=== PATIENT | female | born 2000 | race American Indian/Alaskan Native ===

== ENCOUNTER 2019-08-20 02:43 | Inpatient (IN) | payer MEDICAID, OTHER ==
[2019-08-20] MEDS ORDERED: Oxytocin/Normal Saline 30 UNIT/500 ML BAG IV SCH (03:45)
[2019-08-20] MEDS ORDERED: Tranexamic Acid 1,000 MG in Sodium Chloride 0.9% 100 ML IV PRN (04:09)
[2019-08-20] MEDS ORDERED: Sodium Chloride 0.9% 10 ML Syringe FLUSH PRN ×2 (04:09→05:25)
[2019-08-20] MEDS ORDERED: Lactated Ringers 500 ML IV ONE (04:09)
[2019-08-20] MEDS ORDERED: Ondansetron 4 MG/2 ML SDV IV PRN (04:09)
[2019-08-20] MEDS ORDERED: Carboprost Tromethamine 250 MCG/1 ML Amp IM PRN (04:09)
[2019-08-20] MEDS ORDERED: Misoprostol 400 MCG (4 X 100 MCG TAB) RECTAL PRN (04:09)
[2019-08-20] MEDS ORDERED: Lidocaine 1% 30 ML SDV INJECT PRN (04:09)
[2019-08-20] MEDS ORDERED: Methylergonovine 0.2 MG/1 ML Amp IM PRN (04:09)
[2019-08-20] MEDS ORDERED: Lactated Ringers 1,000 ML IV SCH (04:15)
[2019-08-20] MEDS ORDERED: Benzocaine/Menthol 20%-0.5% Spray 56 GM Canister TOP PRN (05:25)
[2019-08-20] MEDS ORDERED: Oxytocin 10 Units/1 ML SDV IM PRN (05:25)
[2019-08-20] MEDS ORDERED: Simethicone 80 MG Tab.Chew PO PRN (05:25)
[2019-08-20] MEDS ORDERED: Zolpidem 5 MG Tab PO PRN (05:25)
--- NOTE | 2019-08-20 09:35 | HP ---
PATIENT IDENTIFICATION: Gautam Saldana is a 18-year-old, G3, P2-0-0-2, intrauterine at 38 weeks by 34-week ultrasound, who presents with vaginal leaking. HISTORY OF PRESENT ILLNESS: The patient states on the morning of 08/19/2019, approximately 10 a.m., was getting up to go to the bathroom, noticed vaginal leaking that was described as clear in nature. Did soak through some of her undergarments. She states she continued to leak throughout the day. Occasionally had some contractions but nothing increasing in frequency or intensity, and denies any contractions on initial evaluation here. To put this is context, the patient has late care, impaired glucose tolerance, is GBS negative, and had history of syphilis treated in a 2018 with titers decreasing during this with serial titers being done. Records were called for, reviewed as below, and supplemented by the patient history. OBSTERICAL HISTORY: 1. 08/08/2015, 37-4/7 weeks, delivered term female, 6 pounds 9.6 ounces, spontaneous vaginal delivery. 2. 09/10/2018, 37-3/7 weeks, term female, 7 pounds 7 ounces, spontaneous vaginal delivery. [facility]: ABO blood type O positive, negative antibody. Hemoglobin 9.8, platelets 265, rubella immune. RPR reactive with titer decreased to 1:16 and Rh treated in last . Hepatitis B surface antigen negative. Negative HIV, GC, chlamydia. Hepatitis C negative, and UDS negative during this . GBS was negative on 08/11/2019. ALLERGIES: None. MEDICATIONS: vitamins. Iron once a day 325 mg daily. PAST MEDICAL/PAST SURGICAL HISTORY: Otherwise reviewed and felt to be noncontributory. FAMILY HISTORY: Maternal aunt with diabetes. Negative family history of defects, anesthesia problems, bleeding problems, or thyroid disease. SOCIAL HISTORY: The patient denies any alcohol, tobacco, or drug use. She had a positive THC in 2014 on drug screen. Negative during this . She lives with her boyfriend, father of baby, Anderson Burger , and their daughter in the [place] area. They do not have any pets. REVIEW OF SYSTEMS: Otherwise reviewed and felt to be noncontributory. OBJECTIVE: Vital Signs: Blood pressure is 135/74, heart rate 109, temperature 98.2. Appearance: Female, appears her stated age, acting appropriate for age. Nontoxic in appearance. HEENT: Head is atraumatic. EOMs intact. PERRLA. No scleral icterus. No obvious otorhinorrhea. Mucous membranes are moist. With colored contacts in. Neck: No masses or lesions. Lungs: Clear to auscultation bilaterally. No increased work of breathing. Heart: S1 and S2. Regular rate and rhythm. Abdomen: Gravid. Boogie indeterminate. Nontender and nondistended. Bowel sounds positive. No organomegaly, pulsatile masses, or obvious hernias. No rebound, rigidity, or guarding. Genitourinary: Normal external female genitalia. Normal position and presentation of urethra. With normal amount of clear fluid noted at the vaginal orifice. Vaginal exam thereafter reveals her to be 4 cm, 75% effaced, -1 station, vertex suspected, and a secondary bag was felt. This was subsequently ruptured with [place] yielding clear fluid. Extremities: Trace pedal edema. Deep tendon reflexes 2 to 3 out of 4 bilaterally and symmetric in the lower extremities. Mood and affect congruent. Judgment and insight intact. Skin: No cyanosis, clubbing, or jaundice. Pending is a CBC, UDS. NST was found to be reactive and reassuring with heart tones in the 120s. Tocometer does reveal occasional contractions. Pitocin was started immediately after AmniSure was noted to be positive. Initial evaluation by nurse did reveal minimal leaking of fluid vaginally. Therefore, AmniSure was done, and this was positive. Due to prolonged length of rupture of membranes, Pitocin was called for and started immediately. ASSESSMENT: 1. Intrauterine at 38 weeks by 34-week ultrasound. 2. Rupture of membranes with no contractions felt by the patient or labor upon admission with rupture of membranes at 08/19/2019 at 10 a.m. 3. Suspected secondary bag with artificial rupture of membranes done as above yielding clear fluid. 4. Late care. 5. Impaired glucose tolerance. 6. History of syphilis treated in 2018 and titers decreasing. 7. Group B Streptococcus negative. 8. G3, P2-0-0-2. PLAN: The patient will be admitted. Pitocin has been started. Secondary rupture of membranes done as above. We will continue to follow clinically and closely. The patient understands and agrees with the above treatment plan. [facility] /[id number]
--- NOTE | 2019-08-20 10:15 | OBOUT ---
DATE: 08/20/2019 TIME: 2:50 to 3:10. REASON FOR NST: 1. Intrauterine at 38 weeks by 34-week ultrasound. 2. Rupture of membranes with no contractions at approximately 10 a.m. on 08/19/2019. 3. Late care. 4. Impaired glucose tolerance. 5. History of syphilis, treated. Titers decreasing. This was treated in 2018 . 6. GBS negative. 7. G3, P2-0-0-2. NST INTERPRETATION: During this time period, heart tone baseline is approximately 120, and there are at least two 15 x 15 beat per minute accelerations, make this strip reactive. It is also noted to be reassuring. Tocometer reveals potential of 5 contractions that the patient has not felt much. ASSESSMENT: 1. Nonstress test, reactive, and reassuring. 2. Tocometer with contractions. PLAN: Due to rupture of membranes being a distant time ago, Pitocin was called for immediately to be given after initial evaluation and AmniSure revealed it was positive. Please see H and P for further details as well for further plans as well as orders. [facility] /[id number]
[2019-08-20] MEDS: Prenatal Multivitamin with Calcium/Folic Acid/Iron Tab PO SCH (12:55)
[2019-08-20] MEDS: Ibuprofen 800 MG Tab PO PRN ×2 (12:55→21:56)
[2019-08-20] MEDS: Docusate Sodium 100 MG Cap PO PRN ×2 (12:55→19:41)
[2019-08-20] MEDS: Ferrous Sulfate 325 MG Tab PO SCH (12:55)
[2019-08-20] MEDS: Acetaminophen 325 MG Tab PO PRN (19:41)
[2019-08-21] MEDS: Ibuprofen 800 MG Tab PO PRN ×2 (09:57→20:31)
[2019-08-21] MEDS: Docusate Sodium 100 MG Cap PO PRN ×2 (09:57→20:32)
[2019-08-21] MEDS: Ferrous Sulfate 325 MG Tab PO SCH (09:57)
[2019-08-21] MEDS: Prenatal Multivitamin with Calcium/Folic Acid/Iron Tab PO SCH (09:57)
--- NOTE | 2019-08-21 10:30 | PN ---
DATE: 08/21/2019 day #1, status post spontaneous vaginal delivery. SUBJECTIVE: The patient is tolerating p.o., ambulating, urinating, passing flatus. She states her bleeding has been stable. OBJECTIVE: Vital Signs: Temperature 97.6, heart rate 92, blood pressure 132/60, and respiratory rate 18. Lungs: Clear to auscultation bilaterally. Heart: S1, S2. Regular rate and rhythm. GENITOURINARY: Firm uterus around the umbilicus. No peripheral edema. No calf pain. LABORATORY DATA: White cell count 10.3, hemoglobin dropped down to 8.3 from 9.1, and platelets of 206. ASSESSMENT: 1. day #1, status post spontaneous vaginal delivery. 2. Anemia of acute blood loss. Hemoglobin dropping down to 8.3, currently asymptomatic. Vital signs are stable. We will continue to follow clinically and closely. PLAN: Possible discharge tomorrow. Discussed with the patient most likely we will send her home tomorrow in the afternoon sometime, make sure her and her baby are doing well, and repeat a CBC tomorrow. [facility] /[id number]
--- NOTE | 2019-08-21 10:45 | DEL ---
DATE: 08/20/2019 PREOPERATIVE DIAGNOSES: 1. Intrauterine at 38 weeks by 34-week ultrasound. 2. Rupture of membranes at approximately 10 a.m. on 08/19/2019, with no contractions until evaluation in the hospital. 3. Late care. 4. Impaired glucose tolerance. 5. History of syphilis treated in 2018 with titers decreasing. 6. Group B Streptococcus negative. 7. Maternal anemia with hemoglobin 9.1. 8. G3, P2-0-0-2. POSTOPERATIVE DIAGNOSES: 1. Intrauterine at 38 weeks by 34-week ultrasound-delivered. 2. Rupture of membranes at approximately 10 a.m. on 08/19/2019 with no contractions until evaluation in the hospital. 3. Late care. 4. Impaired glucose tolerance. 5. History of syphilis treated in 2018 with titers decreasing. 6. Group B Streptococcus negative. 7. Maternal anemia with hemoglobin 9.1. 8. G3, P2-0-0-2. 9. Shoulder cord x1, reduced bluntly with delivery. PROCEDURES PERFORMED: Non-stress test, followed by artificial rupture of membranes of secondary bag, and spontaneous vaginal delivery on 08/20/2019. ANESTHESIA/ANALGESIA: None. ESTIMATED BLOOD LOSS: 250 mL. FINDINGS: Female. score and weight pending. SUMMARY OF EVENTS: The patient is a 18-year-old, G3, P2-0-0-2 intrauterine at 38 weeks by 34-week ultrasound who presented with vaginal leaking approximately starting at 10 a.m. on 08/19/2019, deferred contractions until further evaluations done at the hospital. She has had late care, impaired glucose tolerance, history of syphilis treated in 2018 with titers being followed and decreasing, with anemia, hemoglobin 9.1 upon admission. Subsequently, underwent NST followed by artificial rupture of membranes, and then rapidly progressed from 4 cm to complete. This was done over less than a 3- hour period. I was called to the room, when she was found to be 7 cm, requesting intrathecal. Upon my arrival to the room, which I was called stat afterwards, I donned sterile gown and gloves, the patient was found to be 9 cm. She breathed through another contraction, had the urge to push, was found to be complete, and pushed with the next contraction, and vertex was delivered in a LAURA presentation with shoulder cord x1, reduced bluntly with delivery. Anterior and posterior shoulder as well as the rest of the infant delivered without difficulty. Mouth and nares were suctioned. Cord was doubly clamped and cut and infant was resuscitated on mother's abdomen. Then, approximately 10 mL of cord blood was obtained for labs. Placenta then delivered with gentle cord traction and fundal massage within 5 minutes. Perineum, vagina, and perirectal areas were then examined without any tears or lacerations. Mother and infant are currently stable at the time of this dictation. [facility] /[id number]
[2019-08-22] MEDS: Docusate Sodium 100 MG Cap PO PRN (09:45)
[2019-08-22] MEDS: Acetaminophen 325 MG Tab PO PRN (09:45)
[2019-08-22] MEDS: Ibuprofen 800 MG Tab PO PRN (09:45)
[2019-08-22] MEDS: Ferrous Sulfate 325 MG Tab PO SCH (09:45)
[2019-08-22] MEDS: Prenatal Multivitamin with Calcium/Folic Acid/Iron Tab PO SCH (09:45)
[2019-08-22 11:31] VITALS: BP 121/63; PULSE 83
--- NOTE | 2019-08-25 10:46 | DISCH ---
ADMITTING DIAGNOSES: 1. Intrauterine at 38 weeks by 34-week ultrasound. 2. Rupture of membranes with no obvious contractions at approximately 10 a.m. on 08/19/2019. 3. Late care. 4. Impaired glucose tolerance. 5. History of syphilis treated in 2018 with titers decreasing now. 6. Group B Streptococcus negative. 7. Maternal anemia with hemoglobin of 9.1. 8. G3, P2-0-0-2. DISCHARGE DIAGNOSES: 1. Intrauterine at 38 weeks by 34-week ultrasound - delivered. 2. Rupture of membranes with no obvious contractions at approximately 10 a.m. on 08/19/2019. 3. Late care. 4. Impaired glucose tolerance. 5. History of syphilis treated in 2018 with titers decreasing now. 6. Group B Streptococcus negative. 7. Maternal anemia with hemoglobin of 9.1. 8. G3, P2-0-0-2. 9. Shoulder cord x1, reduced bluntly with delivery. 10.Anemia of acute blood loss, hemoglobin dropping down to 8.3 on 08/21/2019. PROCEDURES PERFORMED: NST, artificial rupture of membranes, spontaneous vaginal delivery on 08/20/[address] Mead. HISTORY OF PRESENT ILLNESS: Please see H and P. SUMMARY OF HOSPITAL COURSE: The patient was admitted on the above date with the above diagnosis as rupture of membranes with no obvious contractions, was evaluated and found to have a secondary bag that was subsequently ruptured yielding clear fluid. She rapidly progressed from 4 cm to complete over less than a 3-hour period and did not receive an intrathecal due to rapid progression of labor. She went onto have a spontaneous vaginal delivery yielding a female with score of 9 and 9, weighing 3100 g (6 pounds 13 ounces). Please see delivery note for further details. day #1, please see progress note. day #2, date of discharge, the patient was tolerating p.o.s, ambulating, urinating, passing flatus, and requesting discharge. PHYSICAL EXAMINATION: Vital Signs: Last set of vitals updated and listed in chart. Temperature 98.2, heart rate 78, blood pressure 120/67, and respiratory rate 16. Lungs: Clear to auscultation bilaterally. Heart: S1, S2. Regular rate and rhythm. Pelvic: Firm uterus +1 below umbilicus. Extremities: No peripheral edema. No calf pain. CONDITION ON DISCHARGE COMPARED TO CONDITION ON ADMISSION: Improved. DISCHARGE INSTRUCTIONS: 1. Diet as tolerated. 2. Activity: No lifting more than 20 pounds. No sit-ups, straining, and pelvic rest for the next 6 weeks with immediate return to fertility discussed with the patient. Reasons to return or go to the emergency room were discussed with the patient in detail including, but not limited to, temperature greater than 100.4, foul- smelling discharge, red hot tender breasts, or increased vaginal bleeding. DISCHARGE MEDICATIONS: [id number] Tylenol or ibuprofen for pain. She has iron sulfate 325 and will take it b.i.d. with her vitamins for 6 weeks. FOLLOWUP: Follow up in 6 weeks . Did discuss the importance of followup and ramifications of not doing so and reasons to return or go to the emergency room in regard to her as well. The patient understands and agrees with the above treatment plan. See discharge paperwork for further details as well. [facility] /[id number]
== END 2019-08-22 12:40 | disposition home or self-care (01) | DRG 806 ==
LOC: DL.OBCHECK 02:43 → DL.OB 04:14 → OBSVTOIN 05:17 → DL.MS 08-21 21:55
PROVIDERS: ADMIT Family Medicine; ATTEND Family Medicine
PROC: 10E0XZZ Delivery of Products of Conception, External Approach (ICD-10-PCS; principal; 2019-08-20)
PROC: 10907ZC Drainage of Amniotic Fluid, Therapeutic from Products of Conception, Via Natural or Artificial Opening (ICD-10-PCS; 2019-08-20)
PROC: 4A1HXCZ Monitoring of Products of Conception, Cardiac Rate, External Approach (ICD-10-PCS; 2019-08-20)
DX: O42.92 Full-term premature rupture of membranes, unspecified as to length of time between rupture and onset of labor (principal); O99.814 Abnormal glucose complicating childbirth; D62 Acute posthemorrhagic anemia; Z37.0 Single live birth; O90.81 Anemia of the puerperium; Z3A.38 38 weeks gestation of pregnancy
CPT/HCPCS: 36415; 59409; 80305-QW; 84112; 85027; A9270-GY; J2405; J2590; J7120

== ENCOUNTER 2020-03-02 23:10 | Emergency (ER) | payer MEDICAID, OTHER ==
[2020-03-02 23:22] VITALS: BP 136/57; PULSE 117
[2020-03-02 23:50] LABS: ANION GAP 12.6 mEq/L (7-13); CHLORIDE,CL 104 mmol/L (98-107); SODIUM,NA 142 mmol/L (136-145)
[2020-03-03] MEDS ORDERED: Nitrofurantoin Monohydrate/Macrocrystalline 100 MG Cap PO ONE (01:24)
--- NOTE | 2020-03-03 01:24 | EDM.PDOC ---
"ED HPI GENERAL MEDICAL PROBLEM - General Chief Complaint: [employer] Problem Stated Complaint: PREG AND BLEEDING/NOT SURE HOW FAR ALONG Time Seen by Provider: 03/02/20 23:20 Source of Information: Reports: Patient, RN History Limitations: Reports: No Limitations - History of Present Illness INITIAL COMMENTS - FREE TEXT/NARRATIVE: Vag bleeding intermittent x 2 weeks, tonight heavier. Reports positive but unsure how far along, LMP 2/15. Some lower abdominal pain, prior to tonight typical for pad to last all day, Saturated large pad this rodri. No fever or chills. No dizziness. - Related Data Allergies Allergy/AdvReac Type Severity Reaction Status Date / Time No Known Allergies Allergy Verified 03/02/20 23:18 Past Medical History - Past Health History Medical/Surgical History: Denies Medical/Surgical History Genitourinary History: Reports: STD [employer] History: Reports: , Other (See Below) Other [employer] History: genital warts, bv, chlamydia, + RPR in 2018 Psychiatric History: Reports: Depression Other Psychiatric History: patient reports suicide attempt in october, overdosed on unisom. Denies having thoughts since then, was hospitalized and seeked counseling Hematologic History: Reports: Anemia - Infectious Disease History Infectious Disease History: Reports: Other (See Below) Other Infectious Disease History: syphilis in 2018 - Past Surgical History Female Surgical History: Reports: None Social & Family History - Family History Family Medical History: Noncontributory - Tobacco Use Smoking Status *Q: Never Smoker Second Hand Smoke Exposure: No - Caffeine Use Caffeine Use: Reports: Energy Drinks, Soda - Recreational Drug Use Recreational Drug Use: No ED ROS GENERAL - Review of Systems Review Of Systems: Comprehensive ROS is negative, except as noted in HPI. ED EXAM - Physical Exam Exam: See Below Exam Limited By: No Limitations General Appearance: Alert, Mild Distress Eye Exam: Bilateral Eye: EOMI Ears: Normal External Exam, Hearing Grossly Normal Nose: Normal Inspection Throat/Mouth: Normal Inspection Head: Atraumatic Respiratory/Chest: No Respiratory Distress, Lungs Clear, Normal Breath Sounds Cardiovascular: Regular Rate, Rhythm GI/Abdominal Exam: Normal Bowel Sounds, Soft, Tender (mild suprapubic) (Female) Exam: Vaginal Bleeding (small amount dark red few small clots ) Back Exam: Normal Inspection Extremities: Normal Inspection Neurological: Alert, Oriented Psychiatric: Normal Affect Skin Exam: Warm, Dry, Intact Course - Vital Signs Last Recorded V/S: Last Vital Signs Temp 99.3 F 03/02/20 23:18 Pulse 117 H 03/02/20 23:18 Resp 20 03/02/20 23:18 BP 136/57 L 03/02/20 23:18 Pulse Ox 97 03/02/20 23:18 - Orders/Labs/Meds Orders: Active Orders 24 hr Category Date Time Status OB Ltd 1 or More Fetus [US] Urgent Exams 03/02/20 23:17 Taken CULTURE URINE [RM] Stat Lab 03/02/20 23:14 Received Labs: Laboratory Tests 03/02/20 03/02/20 03/02/20 Range/Units 23:14 23:14 23:23 WBC 10.5 H (5.0-10.0) 10^3/uL RBC 4.67 (4.2-5.4) 10^6/uL Hgb 12.6 D (12.0-16.0) g/dL Hct 38.3 (37.0-47.0) % MCV 82.0 D (80-100) fL MCH 27.0 (27.0-34.0) pg MCHC 32.9 L (33.0-35.0) g/dL Plt Count 342 D (150-450) 10^3/uL Neut % (Auto) 60.6 (42.2-75.2) % Lymph % (Auto) 31.3 (20.5-50.1) % Sullivan % (Auto) 6.2 (2-8) % Eos % (Auto) 1.8 (1.0-3.0) % Baso % (Auto) 0.1 (0.0-1.0) % Sodium (136-145) mmol/L Potassium (3.5-5.1) mmol/L Chloride (98-107) mmol/L Carbon Dioxide (21-32) mmol/L Anion Gap (7-13) mEq/L BUN (7-18) mg/dL Creatinine (0.55-1.02) mg/dL Est Cr Clr Drug Dosing mL/min Estimated GFR (MDRD) BUN/Creatinine Ratio (No establ ref range) Glucose (74-99) mg/dL Calcium (8.5-10.1) mg/dL Total Bilirubin (0.2-1.0) mg/dL AST (15-37) U/L ALT (14-59) U/L Alkaline Phosphatase (46-116) U/L Total Protein (6.4-8.2) g/dL Albumin (3.4-5.0) g/dL Globulin Albumin/Globulin Ratio HCG, Qual HCG, Quant (0-6) mIU/mL Urine Color Red (YELLOW) Urine Appearance Turbid (CLEAR) Urine pH >= 9.0 (5.0-9.0) Ur Specific [place] 1.020 (1.005-1.030) Urine Protein >=300 H (NEGATIVE) Urine Glucose (UA) Negative (NEGATIVE) Urine Ketones 15 H (NEGATIVE) Urine Occult Blood Large H (NEGATIVE) Urine Nitrite Positive H (NEGATIVE) Urine Bilirubin Moderate H (NEGATIVE) Urine Urobilinogen 2.0 H (0.2-1.0) mg/dL Ur Leukocyte Esterase Large H (NEGATIVE) Urine RBC >100 H /HPF Urine WBC 0-5 (0-5/HPF) /HPF Ur Epithelial Cells Few (NOT SEEN) /HPF Urine Bacteria Few (0-FEW/HPF) /HPF Urine Mucus Few H (NOT SEEN) /LPF Urine Opiates Screen Negative (NEGATIVE) Ur Oxycodone Screen Negative (NEGATIVE) Urine Methadone Screen Negative (NEGATIVE) Ur Barbiturates Screen Negative (NEGATIVE) U Tricyclic Antidepress Negative (NEGATIVE) Ur Phencyclidine Scrn Negative (NEGATIVE) Ur Amphetamine Screen Negative (NEGATIVE) U Methamphetamines Scrn Negative (NEGATIVE) Urine MDMA Screen Negative (NEGATIVE) U Benzodiazepines Scrn Negative (NEGATIVE) Urine Cocaine Screen Negative (NEGATIVE) U Marijuana (THC) Screen Positive H (NEGATIVE) 03/02/20 03/02/20 Range/Units 23:23 23:23 WBC (5.0-10.0) 10^3/uL RBC (4.2-5.4) 10^6/uL Hgb (12.0-16.0) g/dL Hct (37.0-47.0) % MCV (80-100) fL MCH (27.0-34.0) pg MCHC (33.0-35.0) g/dL Plt Count (150-450) 10^3/uL Neut % (Auto) (42.2-75.2) % Lymph % (Auto) (20.5-50.1) % Sullivan % (Auto) (2-8) % Eos % (Auto) (1.0-3.0) % Baso % (Auto) (0.0-1.0) % Sodium 142 (136-145) mmol/L Potassium 3.6 (3.5-5.1) mmol/L Chloride 104 (98-107) mmol/L Carbon Dioxide 29 (21-32) mmol/L Anion Gap 12.6 (7-13) mEq/L BUN 12 (7-18) mg/dL Creatinine 0.73 (0.55-1.02) mg/dL Est Cr Clr Drug Dosing 96.42 mL/min Estimated GFR (MDRD) > 60 BUN/Creatinine Ratio 16.4 (No establ ref range) Glucose 82 (74-99) mg/dL Calcium 8.6 (8.5-10.1) mg/dL Total Bilirubin 0.1 L (0.2-1.0) mg/dL AST 12 L (15-37) U/L ALT 29 (14-59) U/L Alkaline Phosphatase 103 (46-116) U/L Total Protein 7.5 (6.4-8.2) g/dL Albumin 3.9 (3.4-5.0) g/dL Globulin 3.6 Albumin/Globulin Ratio 1.1 HCG, Qual Positive HCG, Quant 5802 H (0-6) mIU/mL Urine Color (YELLOW) Urine Appearance (CLEAR) Urine pH (5.0-9.0) Ur Specific [place] (1.005-1.030) Urine Protein (NEGATIVE) Urine Glucose (UA) (NEGATIVE) Urine Ketones (NEGATIVE) Urine Occult Blood (NEGATIVE) Urine Nitrite (NEGATIVE) Urine Bilirubin (NEGATIVE) Urine Urobilinogen (0.2-1.0) mg/dL Ur Leukocyte Esterase (NEGATIVE) Urine RBC /HPF Urine WBC (0-5/HPF) /HPF Ur Epithelial Cells (NOT SEEN) /HPF Urine Bacteria (0-FEW/HPF) /HPF Urine Mucus (NOT SEEN) /LPF Urine Opiates Screen (NEGATIVE) Ur Oxycodone Screen (NEGATIVE) Urine Methadone Screen (NEGATIVE) Ur Barbiturates Screen (NEGATIVE) U Tricyclic Antidepress (NEGATIVE) Ur Phencyclidine Scrn (NEGATIVE) Ur Amphetamine Screen (NEGATIVE) U Methamphetamines Scrn (NEGATIVE) Urine MDMA Screen (NEGATIVE) U Benzodiazepines Scrn (NEGATIVE) Urine Cocaine Screen (NEGATIVE) U Marijuana (THC) Screen (NEGATIVE) Meds: Medications Discontinued Medications Generic Name Dose Route Start Last Admin Trade Name [place] PRN Reason Stop Dose Admin Nitrofurantoin Macrocrystals 100 mg 03/03/20 01:24 03/03/20 01:28 Macrobid PO 03/03/20 01:25 100 mg ONETIME ONE Administration - Radiology Interpretation Free Text/Narrative:: [facility] [place] [facility] Final Radiology Report Call: [phone] assistance Online chat: [email or web address] Name: MELODY GARZA Age: 19Years F Date: 03/03/2020 SSN: -- : 2000 Study: US LTD ONE OR MORE FETUSES Requesting Physician: JEFFREY RIZO Images: 19 Addl Studies: Provided Clinical History: Contrast: Without Contrast Medium: Contrast Amount: Contrast Method: Page 1 of 2 PROCEDURE INFORMATION: Exam: US First Trimester, Transabdominal Exam date and time: 03/03/2020 12:21 AM Age: 19 years old Clinical indication: Lmp or gestational age (in weeks): 13w4d; Antepartum complications; Bleeding; TECHNIQUE: Imaging protocol: Real-time transabdominal obstetrical ultrasound of the maternal pelvis and a first trimester , less than 14 weeks 0 days, with image documentation. COMPARISON: No relevant prior studies available. FINDINGS: INTRAUTERINE GESTATION: No gestational sac identified. POLE: Not identified. YOLK SAC: Not identified. HEART RATE: Not identified. UTERUS: Uterus measures 9.7 x 5.9 x 4.4 cm. Endometrial complex measures 15 mm. RIGHT OVARY: RIGHT ovary measures 2.2 x 1.9 x 2.1 cm. LEFT OVARY: LEFT ovary was not visualized secondary to overlying bowel gas. FREE FLUID: There is no free fluid within the pelvis. IMPRESSION: No evidence for intrauterine or extrauterine gestational sac, yolk sac or pole. LEFT ovary not visualized. Indeterminate examination with respect to ectopic . Follow-up beta-hCG values as well as ultrasound as clinical indications warrant. MELODY GARZA | Final Radiology Report CONFIDENTIALITY STATEMENT This report is intended only for use by the referring physician, and only in accordance with law. If you received this in error, call [phone]. Page 2 of 2 Thank you for allowing us to participate in the care of your patient. Dictated and Authenticated by: Didi Beth MD 03/03/2020 12:56 AM Central Time ([place] & [place] Departure - Departure Time of Disposition: 01:21 Disposition: Home, Self-Care 01 Condition: Good Clinical Impression: Miscarriage Urinary tract infection Qualifiers: Urinary tract infection type: site unspecified Hematuria presence: with hematuria Qualified Code(s): N39.0 - Urinary tract infection, site not specified - Discharge Information *PRESCRIPTION DRUG MONITORING PROGRAM REVIEWED*: No *COPY OF PRESCRIPTION DRUG MONITORING REPORT IN PATIENT ALVA: No Instructions: Miscarriage Referrals: Pérez Mead MD [Primary Care Provider] - Forms: ED Department Discharge Additional Instructions: rest clinic follow up as needed urgent follow up, fever, odor or discharge or dizziness Macrobid 100mg one twice daily for one week Sepsis Event Note - Evaluation Sepsis Screening Result: No Definite Risk - Focused Exam Vital Signs: Vital Signs Temp Pulse Resp BP Pulse Ox 03/02/20 23:18 99.3 F 117 H 20 136/57 L 97 Date Exam was Performed: 03/03/20 Time Exam was Performed: 05:27 - My Orders Last 24 Hours: My Active Orders 03/02/20 23:14 CULTURE URINE [RM] Stat 03/02/20 23:17 OB Ltd 1 or More Fetus [US] Urgent - Assessment/Plan Last 24 Hours: My Active Orders 03/02/20 23:14 CULTURE URINE [RM] Stat 03/02/20 23:17 OB Ltd 1 or More Fetus [US] Urgent"
== END 2020-03-03 01:29 | disposition home or self-care (01) ==
LOC: DL.ED 23:10
DX: O03.9 Complete or unspecified spontaneous abortion without complication (principal); N39.0 Urinary tract infection, site not specified; R31.9 Hematuria, unspecified
CPT/HCPCS: 36415; 76815; 80053; 80305-QW; 81001; 84702; 84703; 85025; 87086; 99284-25; A9270-GY